=== PATIENT | female | born 1935 | race Caucasian/White ===

== ENCOUNTER → 2017-12-07 | Outpatient (CLI) | payer MEDICARE, BC ==
[~2017-12-07] MED LIST: BUPIVACAINE MPF 0.5% 30 ML VIAL. ONE
== END | disposition home or self-care (01) ==
LOC: SURG 13:02
PROVIDERS: ATTEND Anesthesiology
DX: M79.1 Myalgia (principal); I48.91 Unspecified atrial fibrillation; I10 Essential (primary) hypertension; M19.90 Unspecified osteoarthritis, unspecified site; E11.9 Type 2 diabetes mellitus without complications; F32.9 Major depressive disorder, single episode, unspecified; K21.9 Gastro-esophageal reflux disease without esophagitis; Z90.710 Acquired absence of both cervix and uterus; Z90.49 Acquired absence of other specified parts of digestive tract; Z96.649 Presence of unspecified artificial hip joint; Z79.899 Other long term (current) drug therapy; Z79.4 Long term (current) use of insulin
CPT/HCPCS: 20553; J3490

== ENCOUNTER 2019-12-25 19:45 | Emergency (ER) | payer MEDICARE, BC ==
[~2019-12-25] VITALS: Ht 167.6 cm; Wt 102.6 kg
--- NOTE | 2019-12-25 19:57 | PHYS DOC ---
Past History Past Medical History: A-Fib, Alcoholism, Arthritis, Constipation, Dementia, Depression, Hypertension, Pneumonia, Other Past Surgical History: Other General Adult EDM: Chief Complaint: ABDOMINAL PAIN HPI: HPI: ".. I hurt all... over ....my tummy.... I feel ... full...help.. help me... my god... my bowels.. I feel like.. I got to go.... bathroom ... bad..." Patient is a 84 year old female who presents with above hx and complaints of increase edema, wt. gain , weakness, generalized abd. pain and fatigue. Patient a transfer to ED for evaluation from [facility]. Patient has been a resident there is since 08/22/2019. Patient follows with at [facility]. Patient has history of lateral malleolus fracture on righ, RSV pneumonia, chronic A. fib, diabetes with peripheral neuropathy, cognitive communication deficit, dysphasia, dementia, and deconditioning. Patient reportedly has recent change in meds-Lasix was stopped. snf report advised patient was very constipated and been drinking excessive amount of alcohol? Review of Systems: Review of Systems: Review of systems somewhat limited because of patient's mental state-and dementia Constitutional: Denies fever or chills Eyes: Denies change in visual acuity HENT: Denies nasal congestion or sore throat Respiratory: Complains of left lower chest discomfort and shortness of breath Cardiovascular: Denies chest pain or edema GI: Complains of abdominal pain, nausea,. Denies vomiting, bloody stools or diarrhea patient localizes pain in abdomen left upper and mid quadrant : Denies dysuria Musculoskeletal: Denies back pain or joint pain Integument: Denies rash Neurologic: Denies headache, focal weakness or sensory changes Endocrine: Denies polyuria or polydipsia Lymphatic: Denies swollen glands Psychiatric: Denies depression or anxiety Heart Score: HEART Score for Chest Pain: HEART Score for Chest Pain Response (Comments) Value History Moderately Suspicious 1 ECG Nonspecific Repolarizatio 1 Age > 65 2 Risk Factors >3 Risk Factors or Hx CAD 2 Troponin < Normal Limit 0 Total 6 Risk Factors: Risk Factors: DM, Current or recent (<one month) smoker, HTN, HLP, family history of CAD, obesity. Risk Scores: Score 0 - 3: 2.5% MACE over next 6 weeks - Discharge Home Score 4 - 6: 20.3% MACE over next 6 weeks - Admit for Clinical Observation Score 7 - 10: 72.7% MACE over next 6 weeks - Early Invasive Strategies Family History: Family History: Not currently available Current Medications: Current Meds: See nursing for [facility] meds Allergies: Allergies: Reported allergy to cephalexin Physical Exam: PE: Constitutional: Reports acute distress, chronically ill and appearance. [] HENT: Normocephalic, atraumatic, bilateral external ears normal, oropharynx dry, no oral exudates, nose normal. [] Eyes: PERRLA, EOMI, conjunctiva pale Neck: Trachea midline Cardiovascular: Irregular heart rate and rhythm, no murmur [] PMI to the left Lungs & Thorax: Bilateral breath sounds equal apex with scattered wheezes and basilar crackles on auscultation [] Abdomen: Bowel sounds are hyper active , soft, generalized tenderness, no masses, no pulsatile masses. [] Old surgery scar. No stool in vault. No gross blood. Some localization to left upper quadrant and mid abdomen on rebound Skin: Warm, dry, no erythema, no rash. Poor turgor Back: No tenderness, no CVA tenderness. [] Extremities: Complains of generalized limb tenderness, moves extremities with noxious stimuli ,leg edema. No obvious Neurologic: Alert and oriented X 2, moves extremities on request, has distal sensory,, confused Psychologic: Affect anxious and agitated, judgement obviously impaired l, mood depressed EKG: EKG: My interpretation EKG shows a irregular rhythm and rate. Consistent with A. fib. Does have some nonspecific contour abnormalities and anterior septal changes. But no findings of acute STEMI of contralateral changes. [] Radiology/Procedures: Radiology/Procedures: [address] [address] IMAGING REPORT Signed PATIENT: SHADE REMY ACCOUNT: [id number] : 1935 LOCATION: ER AGE: 84 SEX: F EXAM STATUS: REG ER ORD. PHYSICIAN: CHEL TAPIA MD REASON: WEAKNESS PROCEDURE: PORTABLE CHEST 1V Exam: Chest one view INDICATION: Weakness TECHNIQUE: Frontal view of the chest Comparisons: None FINDINGS: The cardiomediastinal silhouette and pulmonary vessels are within normal limits. Hazy opacities at the lung bases bilaterally greater on the left with small bilateral pleural effusions. Additionally there is a hazy opacity at the right upper lung. IMPRESSION: Scattered areas of hazy opacity particularly at the right upper lung and left lung base with small bilateral pleural effusions. Findings may relate to multifocal pneumonia. Follow-up imaging posttreatment to ensure resolution is recommended. Electronically signed by: Ally Pang MD (12/25/2019 8:41 PM) [id number] DICTATED AND SIGNED BY: ALLY PANG MD DATE: 12/25/192040 CC: CHEL TAPIA MD; ALLAN KING MD ~ [address] [address] IMAGING REPORT Signed PATIENT: SHADE REMY ACCOUNT: [id number] : 1935 LOCATION: ER AGE: 84 SEX: F EXAM STATUS: REG ER ORD. PHYSICIAN: CHEL TAPIA MD REASON: ABDOMEN PAIN. PROCEDURE: KUB Exam: Abdomen one view INDICATION: Abdomen pain TECHNIQUE: Supine view the abdomen Comparisons: None FINDINGS: Air and stool are noted throughout the colon to level the rectum in a nonobstructive bowel gas pattern. Surgical clips from prior cholecystectomy and IVC filter noted. No suspicious masses or calcifications. Visualized osseous structures are unremarkable. IMPRESSION: Nonobstructive bowel gas pattern. Electronically signed by: Ally Pang MD (12/25/2019 8:43 PM) [id number] DICTATED AND SIGNED BY: ALLY PANG MD DATE: 12/25/192042 CC: CHEL TAPIA MD; ALLAN KING MD ~ [][address] [address] IMAGING REPORT Signed PATIENT: SHADE REMY ACCOUNT: [id number] : 1935 LOCATION: ER AGE: 84 SEX: F EXAM STATUS: REG ER ORD. PHYSICIAN: CHEL TAPIA MD REASON: cough, dyspnea, infiltrates, pain Lt. lower chest and upper abd. PROCEDURE: CT CHEST ABDOMEN PELVIS WO EXAM: CT Chest, Abdomen and Pelvis without IV contrast CLINICAL HISTORY: Cough, dyspnea, infiltrates, lower chest and abdominal pain. COMPARISON: MRI thoracic spine 12/27/2017. TECHNIQUE: Helical CT of the chest, abdomen and pelvis was performed without intravenous contrast. Axial, coronal and sagittal reformatted images were generated. ---PQRS compliance statement - One or more of the following individualized dose reduction techniques were utilized for this study: 1. Automated exposure control 2. Adjustment of the mA and/or kV according to patient size 3. Use of iterative reconstruction technique--- FINDINGS: Lack of intravenous contrast limits evaluation of solid organs, vasculature, and lymph nodes. Chest: Marked enlargement of the thyroid particularly the right thyroid and isthmus measuring 7 x 5.6 cm resulting in leftward deviation of the trachea. No axillary lymphadenopathy. Pretracheal lymph node is enlarged measuring 1.3 x 1.3 cm. Given noncontrast exam, evaluation for or hilar lymphadenopathy is limited. Dense aortic calcifications are seen. Heart is mildly enlarged. Coronary calcifications are seen. Aortic root calcifications are noted. Bilateral pleural effusions. Dependent opacities in the lower lobes bilaterally may represent atelectasis or developing consolidation given air bronchograms favor consolidative process. Right upper lung nodular opacity measures 3.7 x 2.1 cm. Abdomen and Pelvis: No focal liver lesion. Cholecystectomy clips are seen. No biliary ductal dilatation. Calcified granuloma are seen within the spleen. Adrenal glands are normal. Fatty atrophy of the pancreas. Dense aortic and main branch atherosclerotic calcifications. IVC filter is seen. No focal renal lesion. No hydronephrosis or hydroureter. Bladder is markedly distended, can be correlated with possible voluntary or involuntary causes of urinary retention. Moderate colonic stool content is seen. Colonic diverticula. No evidence for acute diverticulitis. No bowel obstruction. Rectus diastases is seen anteriorly. Associated soft tissue swelling anteriorly and in the flanks bilaterally. Bones: Left total hip arthroplasty. Severe right hip joint osteophytes arthritis. Degenerative changes of spine are seen. There is height loss of the T12 vertebral body is stable. IMPRESSION: 1. Bilateral pleural effusions. 2. Multifocal parenchymal airspace opacities may represent consolidative process such as pneumonia. 3. Nodular opacity in the upper right lung may be consolidative in nature however underlying mass is also a primary consideration particularly given the mediastinal lymphadenopathy. Consider short interval follow-up CT following resolution of the acute process. 4. Marked thyroid enlargement with leftward deviation of the trachea. Further evaluation with ultrasound is recommended to assess for underlying mass. 5. Bladder is markedly distended, can be correlated with possible voluntary or involuntary causes of urinary retention. Electronically signed by: Dinesh Marsh MD (12/25/2019 11:58 PM) [facility] DICTATED AND SIGNED BY: DINESH MARSH MD DATE: 12/25/19 2602 CC: CHEL TAPIA MD; ALLAN KING MD ~ Course & Med Decision Making: Course & Med Decision Making Pertinent Labs and Imaging studies reviewed. (See chart for details) Discussed presentation, testing and tx. plan with Dr. Lanza- Plan transfer to [facility] Impression: 1. Chest Pain- Lt. Lower 2. Abdomen Pain - Lt. upper abd. 3. Leukocytosis- 14.8 4. Anemia Hgb- 10.8, Microcytic 74 and Hypochromic 24, Thrombocytosis 460 5. Hyponatremia 117 and Hyperkalemic 5.9 6. Renal Failure -Elevated BUN 55, Creat 1.4 7. DM 154 8. Elevated AST 48,Alk Phos.221 9. BNP 3,933 - Diastolic Dysfunction - CHF 10.Malnutrition 2.9 Alb. 11.Atypical Pneumonia RUL 12. Hx. Chronic Episodes of Constipation [] Dragon Disclaimer: Precious Disclaimer: This electronic medical record was generated, in whole or in part, using a voice recognition dictation system. Departure Departure: Disposition: 01 HOME/RESIDENCE PRIOR TO ADM Condition: STABLE Referrals: ALLAN KING MD (PCP) Precious Disclaimer This chart was dictated in whole or in part using Voice Recognition software in a busy, high-work load, and often noisy Emergency Department environment. It may contain unintended and wholly unrecognized errors or omissions. CHEL TAPIA MD Dec 25, 2019 19:57
--- NOTE | 2019-12-25 20:44 | RAD ---
Exam: Chest one view INDICATION: Weakness TECHNIQUE: Frontal view of the chest Comparisons: None FINDINGS: The cardiomediastinal silhouette and pulmonary vessels are within normal limits. Hazy opacities at the lung bases bilaterally greater on the left with small bilateral pleural effusions. Additionally there is a hazy opacity at the right upper lung. IMPRESSION: Scattered areas of hazy opacity particularly at the right upper lung and left lung base with small bilateral pleural effusions. Findings may relate to multifocal pneumonia. Follow-up imaging posttreatment to ensure resolution is recommended. Electronically signed by: Ally Myrick MD (12/25/2019 8:41 PM) [id number]
--- NOTE | 2019-12-25 20:46 | RAD ---
Exam: Abdomen one view INDICATION: Abdomen pain TECHNIQUE: Supine view the abdomen Comparisons: None FINDINGS: Air and stool are noted throughout the colon to level the rectum in a nonobstructive bowel gas pattern. Surgical clips from prior cholecystectomy and IVC filter noted. No suspicious masses or calcifications. Visualized osseous structures are unremarkable. IMPRESSION: Nonobstructive bowel gas pattern. Electronically signed by: Ally Myrick MD (12/25/2019 8:43 PM) [id number]
[2019-12-25 20:49] LABS: BASO % 0 % (0-3); EOS % 0 % (0-3); HEMOGLOBIN 10.8 g/dL (12.0-15.5); LYMPH # 0.9 x10^3/uL (1.0-4.8); LYMPH % 6 % (24-48); MEAN CORPUSCULAR HEMOGLOBIN 24 pg (25-35); MEAN CORPUSCULAR HGB CONC 32 g/dL (31-37); MEAN CORPUSCULAR VOLUME 74 fL (79-100); MONO # 0.9 x10^3/uL (0.0-1.1); MONO % 6 % (0-9); NEUT # 13.1 x10^3uL (1.8-7.7); NEUT % 88 % (31-73); PLATELET COUNT 460 x10^3/uL (140-400); RED BLOOD COUNT 4.57 x10^6/uL (3.50-5.40); WHITE BLOOD COUNT 14.8 x10^3/uL (4.0-11.0)
[2019-12-25 21:08] LABS: ALBUMIN 2.9 g/dL (3.4-5.0); CALCIUM 8.7 mg/dL (8.5-10.1); CREATININE 1.4 mg/dL (0.6-1.0); DIRECT BILIRUBIN 0.3 mg/dL (0.0-0.2); GFR 35.8; MAGNESIUM 1.8 mg/dL (1.8-2.4); POTASSIUM 5.9 mmol/L (3.5-5.1); TOTAL BILIRUBIN 0.7 mg/dL (0.2-1.0)
[2019-12-25] MEDS ORDERED: VANCOMYCIN PER PHARMACY MC PRN (21:15)
[2019-12-25] MEDS ORDERED: VANCOMYCIN 1 GM in IV NORMAL SALINE 250ML 250 ML IV ONE (21:15)
[2019-12-25] MEDS ORDERED: AZITHROMYCIN 500 MG in IV NORMAL SALINE 250ML 250 ML IV ONE (21:15)
[2019-12-25 21:22] LABS: INFLUENZA A PATIENT NEGATIVE (NEGATIVE); INFLUENZA B PATIENT NEGATIVE (NEGATIVE)
[2019-12-25] MEDS ORDERED: MORPHINE SULFATE 10 MG/ML SYRINGE. ONE (21:29)
[2019-12-25] MEDS ORDERED: IV NORMAL SALINE 250ML 250 ML ONE (21:36)
[2019-12-25] MEDS ORDERED: AZITHROMYCIN 500 MG VIAL. IV ONE (21:36)
[2019-12-25 21:42] LABS: BARBITURATES NEG (NEG); BENZODIAZEPINES NEG (NEG); CANNABINOIDS NEG (NEG); COCAINE NEG (NEG); METHADONE NEG (NEG); OPIATES POS (NEG); PHENCYCLIDINE NEG (NEG)
[2019-12-25 21:44] LABS: AMPHETAMINE/METHAMPHETAMINE NEG (NEG)
[2019-12-25] MEDS ORDERED: SODIUM BICARB ADULT 8.4% 50 MEQ/50 ML DISP.SYRIN. IV ONE (21:45)
[2019-12-25] MEDS ORDERED: MORPHINE SULFATE 10 MG/ML SYRINGE. SQ ONE (21:45)
[2019-12-25] MEDS ORDERED: VANCOMYCIN 2 GM in IV NORMAL SALINE 500ML 500 ML IV ONE (22:00)
[2019-12-25] MEDS ORDERED: IOHEXOL 240 MG/ML 50ML VIAL. PO ONE (22:00)
[2019-12-25] MEDS ORDERED: CONTRAST GIVEN MC PRN (22:00)
[2019-12-25] MEDS ORDERED: DEXTROSE 50% 25 GM / 50ML DISP.SYRIN. IV ONE (22:00)
[2019-12-25] MEDS ORDERED: INSULIN REGULAR 100 UNIT/ML 3ML VIAL. IV ONE (22:00)
[2019-12-25 22:07] LABS: BACTERIA,URINE 0 /HPF (0-FEW); BILIRUBIN,URINE NEG (NEG); CLARITY,URINE CLEAR; COLOR,URINE YELLOW; GLUCOSE,URINE NEG (NEG); NITRITE,URINE NEG (NEG); SQUAMOUS EPITHELIAL CELL,UR FEW /LPF; UROBILINOGEN,URINE 0.2 mg/dL (0.2 mg/dL); WBC,URINE 0 /HPF (0-4)
[2019-12-25 22:28] LABS: BGAS PH 7.41 (7.35-7.45)
[2019-12-25] MEDS ORDERED: CALCIUM CHLORIDE 1,000 MG/10 ML DISP.SYRIN IV ONE (22:30)
[2019-12-25 22:59] LABS: % LYMPHS 5 % (24-48); % MONOS 5 % (0-10); % SEGS 90 % (35-66); PLT ESTIMATE INCREASED (ADEQUATE)
--- NOTE | 2019-12-25 23:46 | EKG ---
[address] [address] Test Date: 2019-12-25 Test Time: 20:13:29 Pat Name: SHADE REMY Department: Room: Gender: F Counselor Dormitory: : 1935 Requested By: CHEL TAPIA Order Number: [id number] Reading MD: Claudio Hahn Measurements Intervals [place] Rate: 70 P: HI: QRS: 73 QRSD: 90 T: 34 QT: 388 QTc: 422 Interpretive Statements ATRIAL FIBRILLATION. QRS(T) CONTOUR ABNORMALITY CONSISTENT WITH ANTEROSEPTAL INFARCT PROBABLY OLD Electronically Signed On 12-26-2019 11:19:13 CDT by Claudio Hahn
[2019-12-25 23:52] VITALS: BP 152/63
[2019-12-26] MEDS ORDERED: SODIUM BICARBONATE 50 MEQ/50 ML VIAL. ONE (00:01)
--- NOTE | 2019-12-26 00:01 | RAD ---
EXAM: CT Chest, Abdomen and Pelvis without IV contrast CLINICAL HISTORY: Cough, dyspnea, infiltrates, lower chest and abdominal pain. COMPARISON: MRI thoracic spine 12/27/2017. TECHNIQUE: Helical CT of the chest, abdomen and pelvis was performed without intravenous contrast. Axial, coronal and sagittal reformatted images were generated. ---PQRS compliance statement - One or more of the following individualized dose reduction techniques were utilized for this study: 1. Automated exposure control 2. Adjustment of the mA and/or kV according to patient size 3. Use of iterative reconstruction technique--- FINDINGS: Lack of intravenous contrast limits evaluation of solid organs, vasculature, and lymph nodes. Chest: Marked enlargement of the thyroid particularly the right thyroid and isthmus measuring 7 x 5.6 cm resulting in leftward deviation of the trachea. No axillary lymphadenopathy. Pretracheal lymph node is enlarged measuring 1.3 x 1.3 cm. Given noncontrast exam, evaluation for or hilar lymphadenopathy is limited. Dense aortic calcifications are seen. Heart is mildly enlarged. Coronary calcifications are seen. Aortic root calcifications are noted. Bilateral pleural effusions. Dependent opacities in the lower lobes bilaterally may represent atelectasis or developing consolidation given air bronchograms favor consolidative process. Right upper lung nodular opacity measures 3.7 x 2.1 cm. Abdomen and Pelvis: No focal liver lesion. Cholecystectomy clips are seen. No biliary ductal dilatation. Calcified granuloma are seen within the spleen. Adrenal glands are normal. Fatty atrophy of the pancreas. Dense aortic and main branch atherosclerotic calcifications. IVC filter is seen. No focal renal lesion. No hydronephrosis or hydroureter. Bladder is markedly distended, can be correlated with possible voluntary or involuntary causes of urinary retention. Moderate colonic stool content is seen. Colonic diverticula. No evidence for acute diverticulitis. No bowel obstruction. Rectus diastases is seen anteriorly. Associated soft tissue swelling anteriorly and in the flanks bilaterally. Bones: Left total hip arthroplasty. Severe right hip joint osteophytes arthritis. Degenerative changes of spine are seen. There is height loss of the T12 vertebral body is stable. IMPRESSION: 1. Bilateral pleural effusions. 2. Multifocal parenchymal airspace opacities may represent consolidative process such as pneumonia. 3. Nodular opacity in the upper right lung may be consolidative in nature however underlying mass is also a primary consideration particularly given the mediastinal lymphadenopathy. Consider short interval follow-up CT following resolution of the acute process. 4. Marked thyroid enlargement with leftward deviation of the trachea. Further evaluation with ultrasound is recommended to assess for underlying mass. 5. Bladder is markedly distended, can be correlated with possible voluntary or involuntary causes of urinary retention. Electronically signed by: Dinesh Escobedo MD (12/25/2019 11:58 PM) [facility]
[2019-12-26] MEDS ORDERED: SODIUM BICARBONATE 50 MEQ/50 ML VIAL. IV ONE (00:15)
[2019-12-26] MEDS ORDERED: VANCOMYCIN 1.5 GM in IV NORMAL SALINE 500ML 500 ML IV SCH (23:00)
== END 2019-12-26 02:15 | disposition short-term general hospital (02) ==
LOC: ER 19:45
DX: R07.89 Other chest pain (principal); R10.12 Left upper quadrant pain; Z20.828 Contact with and (suspected) exposure to other viral communicable diseases; D72.829 Elevated white blood cell count, unspecified; D50.9 Iron deficiency anemia, unspecified; E87.1 Hypo-osmolality and hyponatremia; E87.5 Hyperkalemia; N19 Unspecified kidney failure; R79.89 Other specified abnormal findings of blood chemistry; E11.9 Type 2 diabetes mellitus without complications; I11.0 Hypertensive heart disease with heart failure; I50.9 Heart failure, unspecified; E46 Unspecified protein-calorie malnutrition; J18.1 Lobar pneumonia, unspecified organism; K59.00 Constipation, unspecified; I48.91 Unspecified atrial fibrillation; M19.90 Unspecified osteoarthritis, unspecified site; F10.20 Alcohol dependence, uncomplicated; Y90.0 Blood alcohol level of less than 20 mg/100 ml
CPT/HCPCS: 36415; 36600; 71045; 71250; 74018; 74176; 80048; 80076; 80307; 81001; 82150; 82553; 82803; 83605; 83690; 83735; 83880; 84443; 84484; 85007; 85025; 85379; 85610; 85730; 86705; 86709; 86803; 87040; 87070; 87077; 87205; 87340; 87635; 87804; 87880; 93005; 96365; 96366; 96368; 96372; 96375; 99285; G0480; J0456; J1815; J2270; J3370; J7040; J7050; P9612; Q9966